=== PATIENT | male | born 1950 | race Caucasian/White ===

== ENCOUNTER 2017-02-01 13:42 | Inpatient (IN) | payer BC, OTHER ==
--- NOTE | 2017-02-01 14:13 | EDPHY ---
H & P Stated Complaint: Rt Shoulder, Rt Elbow, head lac, Mechanical Fall while hiking - Personal History Current Tetanus/Diphtheria Vaccine: Yes Current Tetanus Diphtheria and Acellular Pertussis (TDAP): Yes - Medical/Surgical History Hx Asthma: No Hx Chronic Respiratory Disease: No Hx Diabetes: No Hx Cardiac Disease: No Hx Renal Disease: No Hx Cirrhosis: No Hx Alcoholism: No Hx HIV/AIDS: No Hx Splenectomy or Spleen Trauma: No Other PMH: Parkinson's. Orthostatic Hypotension - Social History Smoking Status: Unknown if ever smoked Time Seen by Provider: 02/01/17 14:02 HPI/ROS: CHIEF COMPLAINT: mechanical fall HISTORY OF PRESENT ILLNESS: 66-year-old male history of Parkinson's disease, history of baseline unsteady gait in the ER via private vehicle with his . They are visiting from [place], states that they drove to [facility] on [facility] [facility] [facility], he started walking a down a trail and due to the uneven surface he sustained a mechanical fall. No loss of consciousness. No amnesia. He impacted his head. He sustained multiple other injuries to his right side including right shoulder abrasion and pain, right clavicle injury, right elbow pain, right-sided chest pain. Denies: Midline C-spine pain, peripheral paresthesia, weakness, numbness, dyspnea, back pain, abdominal pain, straddle injury. PRIMARY CARE PROVIDER:in [place] REVIEW OF SYSTEMS: A ten point review of systems was performed and is negative with the exception of the items mentioned in the HPI PAST MEDICAL/SURGICAL HISTORY: no anticoagulant use, Parkinson's disease. SOCIAL HISTORY: denies alcohol use at time of incident PHYSICAL EXAM 1) GENERAL: Well-developed, well-nourished, alert and oriented. Appears to be in no acute distress. Answering questions appropriately. 2) HEAD: Normocephalic, right frontal abrasion and laceration measuring 1.5 cm 3) HEENT: Pupils equal, round, reactive to light bilaterally. Negative Horners. Nasopharynx, oropharynx, clear. No deformity or angulation of nose. No septal hematoma. No rhinorrhea. No oral trauma. Ears bilaterally with normal tympanic membranes. No hemotympanum. No fluid or blood in the external auditory canal. No raccoon eyes. No Vallecillo sign. Teeth are normally aligned with no gross malocclusion, TMJ bilaterally nontender, facial bones nontender including the zygomatic arch, maxilla mandible. 4) NECK: No cervical collar is on. Posterior cervical spine is nontender, no stepoff, no effusion. Full range of motion which does not elicit any midline cervical spine pain, no posterior midline tenderness, no step-off. 5) LUNGS: Clear to auscultation bilaterally, no wheezes, no rhonchi, no retractions. No obvious signs of trauma. Right chest wall lateral to the nipple is tender to palpation. No crepitus. . No flaring, no grunting. Moving symmetrically. No crepitus. 6) HEART: Regular rate and rhythm, 7) ABDOMEN: No guarding, no rebound, no focal tenderness, no peritoneal signs, no signs of trauma, no ecchymosis 8) MUSCULOSKELETAL: Right upper extremity: Non tented deformity to the right clavicle. Intact skin. Right deltoid abrasion with tenderness to palpation right shoulder limited range of motion secondary to pain. Right elbow abrasion, puncture wound , tenderness to palpation. Distal pulses capillary refill are brisk. Otherwise , Moving all extremities, no focal areas of tenderness, no obvious trauma. Specific attention paid to the hips and pelvis and there is no pain, no visible or palpable abnormality. 9) BACK: No midline vertebral tenderness, no fluctuance, no step-off, no obvious trauma, no visual or palpable abnormality. 10) SKIN: No laceration. No abrasion DIFFERENTIAL DIAGNOSIS: [in no particular include but limited to intracranial hemorrhage, skull fracture, fracture, sprain, open fracture (Haylie,Diaz Chaya) Constitutional: Initial Vital Signs Temperature (C) 37.3 C 02/01/17 14:02 Heart Rate 74 02/01/17 14:02 Respiratory Rate 16 02/01/17 14:02 Blood Pressure 194/97 H 02/01/17 14:02 O2 Sat (%) 94 02/01/17 14:02 O2 Delivery Mode Room Air Allergies/Adverse Reactions: No Known Allergies Allergy (Unverified 02/01/17 14:07) Home Medications: Medication Instructions Recorded Bupropion HCl [Wellbutrin Xl] 300 mg PO DAILY@02/01/17 Diclofenac Sodium [Voltaren-XR] 100 mg PO DAILY@02/01/17 Donepezil HCl 10 mg PO DAILY@02/01/17 Finasteride [Finasteride] 5 mg PO DAILY@02/01/17 Fludrocortisone Acetate [Florinef 0.1 mg PO DAILY@02/01/17 0.1 MG (RX)] Hydrocodone/Acetaminophen [[place] 1 tab PO Q4H PRN 02/01/17 5/325 (*)] Midodrine HCl 10 mg PO BID@,02/01/17 PARoxetine HCL [Paroxetine HCl] 80 mg PO DAILY@02/01/17 clonazePAM [Klonopin (*)] 0.5 mg PO DAILY@02/01/17 Medical Decision Making - Diagnostics Imaging: Discussed imaging studies w/ office support associate Radiologist Procedures: Procedure: Laceration repair #1. The laceration on the right eyebrow was anesthetized using 0.5% bupivicaine with epinephrine . After anesthetic administered the patient was observed for a period of time and had no apparent adverse effects. The wound was cleaned, prepped, draped in normal sterile fashion and explored to its base. No foreign body seen, no foreign bodies palpated. There were no deep structures involved. The wound was repaired with tissue adhesive . The wound repair was simple Procedure: Laceration repair #2 I explained the indications, risks and benefits for both laceration repair and anesthetic administration. Verbal consent was obtained from the patient . The laceration on the right lateral elbow was anesthetized using 0.5% bupivicaine with epinephrine . After anesthetic administered the patient was observed for a period of time and had no apparent adverse effects. The wound was cleaned, prepped, draped in normal sterile fashion and explored to its base. No foreign body seen, no foreign bodies palpated. There were no deep structures involved. The wound was repaired with a total of 3 simple interrupted 4 0 Prolene sutures. The wound repair was simple. The procedure was performed by [myself. Patient has been informed that scarring will occur, although efforts have been made to minimize this. (Diaz Stallings) ED Course/Re-evaluation: I also saw this patient in the emergency department. I reviewed the history of [place] and fall. I reviewed the history with the family of his Parkinson's disease. Examination shows a closed but comminuted right clavicle fracture. I reviewed the chest x-ray showing rib fractures. The PA and I discussed further imaging with CT which then does show multiple rib fractures. I discussed these findings with the patient and his and recommended admission. They expressed understanding and agreement ( Remington Cain) This patient was re-evaluated with serial examinations. Regarding his right elbow laceration I think that traumatic arthrotomy is less than likely has these appear to be superficial lacerations. In addition there is no evidence of fracture fracture to the elbow. Doubt open fracture therefore. Patient was evaluated by myself and Dr. Remington Cain in the ER. He is noted to have a comminuted, displaced clavicle fracture with tented skin. He has a baseline of unsteady gait secondary to his Parkinson's disease. He has multiple rib fractures. I am concerned about this patient's ability to care for himself appropriately if you were to be discharged. I do not think that placing the patient to a sling and providing him with analgesia would be a safe option for him given his baseline medical history. We have recommended admission. 4:49 p.m.: Phone consultation with orthopedic VELVET Chung with Dr Guerin who will consult orthopedics regarding patient's clavicle fracture. 4:58 p.m.: Phone consultation with circulating nurse for Dr. Persaud who will admit patient to Trauma Services. Patient was not a trauma in activation. (Diaz Stallings) - Data Points Laboratory Results: Laboratory Results 02/01/17 15:19 02/01/17 15:19 Medications Given: Discontinued Medications Fentanyl (Sublimaze) 75 mcg IVP EDNOW ONE Stop: 02/01/17 15:41 Last Admin: 02/01/17 16:05 Dose: 75 mcg Hydromorphone HCl (Dilaudid) 0.5 mg IVP EDNOW ONE Stop: 02/01/17 17:12 Last Admin: 02/01/17 17:20 Dose: 0.5 mg Cefazolin Sodium/Dextrose (Ancef 2 Gm (Premix)) 100 mls @ 200 mls/hr IV ONCALL ONE PRN Reason: Protocol Stop: 02/02/17 07:29 Last Admin: 02/02/17 11:13 Dose: Not Given Lactated Ringer's (Lr) 1,000 mls @ 0 mls/hr IV ONCE ONE PRN Reason: As Directed Stop: 02/02/17 08:18 Last Admin: 02/02/17 11:58 Dose: Not Given Midazolam HCl (Versed) 1 - 2 mg IVP ONCALL ONE Stop: 02/02/17 07:53 Last Admin: 02/02/17 11:58 Dose: Not Given Departure - Departure Disposition: [facility] Inpatient Acute Clinical Impression: Mechanical fall, History of Parkinson's disease, Right forehead laceration Head injury Qualifiers: Encounter type: initial encounter Qualified Code(s): S09.90XA - Unspecified injury of head, initial encounter Right clavicle fracture Qualifiers: Encounter type: sequela Clavicle location: lateral end Fracture type: closed Fracture alignment: displaced Qualified Code(s): S42.031S - Displaced fracture of lateral end of right clavicle, sequela Laceration of right elbow Qualifiers: Encounter type: initial encounter Qualified Code(s): S51.011A - Laceration without foreign body of right elbow, initial encounter Condition: Fair
[2017-02-01] MEDS ORDERED: fentaNYL 100 MCG/2 ML INJ IVP ONE (15:40)
[2017-02-01] MEDS ORDERED: IOPAMIDOL (ISOVUE-300) 100 ML BTL ONE (15:45)
[2017-02-01] MEDS ORDERED: SKIN ADHESIVE (DERMABOND) 1 EACH TP ONE (15:48)
[2017-02-01 16:22] LABS: ABSOLUTE IMMATURE GRANULOCYTES 0.09 10^3/uL (0.00-0.10); ADD DIFF? NO; ADD MORPH? NO; ADD SCAN? NO; ATYPICAL LYMPHOCYTE FLAG 0 (0-99); FRAGMENT RBC FLAG 0 (0-99); HEMOGLOBIN 13.6 g/dL (13.7-17.5); LEFT SHIFT FLG 10 (0-99); LIPEMIA HEMOLYSIS FLAG 90 (0-99); MEAN CELL HEMOGLOBIN 32.1 pg (27.9-34.1); MEAN CELL VOLUME 94.3 fL (81.5-99.8); MEAN PLATELET VOLUME 9.8 fL (8.7-11.7); PLATELET CLUMPS FLAG 10 (0-99); PLATELET COUNT 257 10^3/uL (150-400); RED BLOOD CELL COUNT 4.24 10^6/uL (4.40-6.38); RED CELL DISTRIBUTION WIDTH 13.8 % (11.5-15.2)
[2017-02-01 16:59] LABS: ANION GAP 12 mEq/L (8-16); CALCIUM 9.1 mg/dL (8.5-10.4); CARBON DIOXIDE 21 mEq/l (22-31); CHLORIDE 109 mEq/L (97-110); CREATININE 0.8 mg/dL (0.7-1.3); GLOMERULAR FILTRATION RATE > 60; GLUCOSE 104 mg/dL (70-100); POTASSIUM 3.9 mEq/L (3.5-5.2); SODIUM 142 mEq/L (134-144)
[2017-02-01] MEDS ORDERED: HYDROmorphONE/DILAUDID 1 MG/ML SYR IVP ONE (17:11)
[2017-02-01] MEDS ORDERED: ONDANSETRON 4 MG/2 ML VIAL IVP PRN (17:21)
[2017-02-01] MEDS ORDERED: HYDROmorphONE/DILAUDID 1 MG/ML SYR IVP PRN (17:21)
--- NOTE | 2017-02-01 17:32 | PDGENHP ---
History and Physical - Chief Complaint R shoulder pain - History of Present Illness 66-year-old male status post mechanical fall presents here arriving via private vehicle with right shoulder pain. Patient states that he is visiting from [place], was up near [place] and was walking down a hill. Per his report, he lost balance fell and struck his right side, denies hitting his head or having loss of consciousness. His was on the scene, and promptly brought him here. In the Emergency [place], he was evaluated had some lacerations on his head which has been sutured. He also had imaging of his head C-spine chest abdomen and pelvis and and have the following injuries: Distal right clavicle fracture, right 5th and 6th nondisplaced rib fractures without heme or pneumothorax. The remainder of his imaging was negative for any acute traumatic findings. In the trauma [place] he complains of right shoulder pain, has no other complaints at this point in time. His airway is intact, he is breathing normally, and has adequate circulation. History Information - Allergies/Home Medication List Allergies/Adverse Reactions: No Known Allergies Allergy (Unverified 02/01/17 14:07) Home Medications: CLONAZEPAM 02/01/17 [Last Taken Unknown] Carbidopa/Levodopa 02/01/17 [Last Taken Unknown] Midodrine HCl 02/01/17 [Last Taken Unknown] Paroxetine HCl 02/01/17 [Last Taken Unknown] buPROPion 02/01/17 [Last Taken Unknown] I have personally reviewed and updated: family history, medical history, social history, surgical history - Past Medical History Additional medical history: Parkinson's - Surgical History Additional surgical history: Anterior lower spinal fusion, right knee surgery - Family History Positive for: non-pertinent - Social History Smoking Status: Unknown if ever smoked Alcohol Use: Rarely Drug Use: None Additional social history: Here on vacation from [place] with his Review of Systems ROS: 10pt was reviewed & negative except for what was stated in HPI & below Physical Exam Temp Pulse Resp BP Pulse Ox 36.9 C 80 14 138/84 H 96 02/01/17 16:00 02/01/17 16:00 02/01/17 16:00 02/01/17 16:00 02/01/17 16:09 Constitutional: no apparent distress, appears nourished Eyes: PERRL, anicteric sclera, EOMI, other (laceration adjacent to R eye closed. ) Ears, Nose, Mouth, Throat: moist mucous membranes, hearing normal Cardiovascular: regular rate and rhythym Respiratory: no respiratory distress, other (TTP on R side without crepitus or step off ) Skin: warm, normal color Musculoskeletal: full muscle strength, no muscle tenderness Neurologic: AAOx3, sensation intact bilaterally Psychiatric: interacting appropriately, not anxious Lymph, Heme, Immunologic: no cervical LAD Lab Data & Imaging Review 02/01/17 15:19 02/01/17 15:19 WBC 9.36 10^3/uL (3.80-9.50) 02/01/17 15:19 RBC 4.24 10^6/uL (4.40-6.38) L 02/01/17 15:19 Hgb 13.6 g/dL (13.7-17.5) L 02/01/17 15:19 POC Hgb 14.6 gm/dL (13.7-17.5) 02/01/17 15:15 Hct 40.0 % (40.0-51.0) 02/01/17 15:19 POC Hct 43 % (40-51) 02/01/17 15:15 MCV 94.3 fL (81.5-99.8) 02/01/17 15:19 MCH 32.1 pg (27.9-34.1) 02/01/17 15:19 MCHC 34.0 g/dL (32.4-36.7) 02/01/17 15:19 RDW 13.8 % (11.5-15.2) 02/01/17 15:19 Plt Count 257 10^3/uL (150-400) 02/01/17 15:19 MPV 9.8 fL (8.7-11.7) 02/01/17 15:19 Neut % (Auto) 83.8 % (39.3-74.2) H 02/01/17 15:19 Lymph % (Auto) 6.4 % (15.0-45.0) L 02/01/17 15:19 [place] % (Auto) 7.9 % (4.5-13.0) 02/01/17 15:19 Eos % (Auto) 0.5 % (0.6-7.6) L 02/01/17 15:19 Baso % (Auto) 0.4 % (0.3-1.7) 02/01/17 15:19 Nucleat RBC Rel Count 0.0 % (0.0-0.2) 02/01/17 15:19 Absolute Neuts (auto) 7.84 10^3/uL (1.70-6.50) H 02/01/17 15:19 Absolute Lymphs (auto) 0.60 10^3/uL (1.00-3.00) L 02/01/17 15:19 Absolute Monos (auto) 0.74 10^3/uL (0.30-0.80) 02/01/17 15:19 Absolute Eos (auto) 0.05 10^3/uL (0.03-0.40) 02/01/17 15:19 Absolute Basos (auto) 0.04 10^3/uL (0.02-0.10) 02/01/17 15:19 Absolute Nucleated RBC 0.00 10^3/uL (0-0.01) 02/01/17 15:19 Immature Gran % 1.0 % (0.0-1.1) 02/01/17 15:19 Immature Gran # 0.09 10^3/uL (0.00-0.10) 02/01/17 15:19 POC Sodium 143 mEq/L (134-144) 02/01/17 15:15 Sodium 142 mEq/L (134-144) 02/01/17 15:19 POC Potassium 3.6 mEq/L (3.3-5.0) 02/01/17 15:15 Potassium 3.9 mEq/L (3.5-5.2) 02/01/17 15:19 POC Chloride 103 mEq/L (97-110) 02/01/17 15:15 Chloride 109 mEq/L (97-110) 02/01/17 15:19 Carbon Dioxide 21 mEq/l (22-31) L 02/01/17 15:19 Anion Gap 12 mEq/L (8-16) 02/01/17 15:19 POC BUN 20 mg/dL (7-23) 02/01/17 15:15 BUN 22 mg/dL (7-23) 02/01/17 15:19 Creatinine 0.8 mg/dL (0.7-1.3) 02/01/17 15:19 POC Creatinine 0.9 mg/dL (0.7-1.3) 02/01/17 15:15 Estimated GFR > 60 02/01/17 15:19 Glucose 104 mg/dL (70-100) H 02/01/17 15:19 POC Glucose 108 mg/dL (70-100) H 02/01/17 15:15 Calcium 9.1 mg/dL (8.5-10.4) 02/01/17 15:19 Visualized and Interpreted Chest x-ray results: Yes Chest X-Ray results: other (no hemo or ptx, small nondisplaced right rib fx) Visualized and Interpreted imaging results: Yes Interpretation: Imaging of the CT head, C-spine, chest abdomen pelvis. All images were personally reviewed by me. Findings include: Distal right clavicle fracture, right 5th and 6th rib fracture, no other acute findings Assessment & Plan Assessment: Head injury (Acute) History of Parkinson's disease (Acute) Laceration of right elbow (Acute) Right clavicle fracture (Acute) Plan: Patient will be admitted to the trauma service for pain management. Orthopedics has been consulted to evaluate his distal right clavicle fracture. At this point in time I discussed with him the need for aggressive pulmonary toilet and incentive spirometry. I told him the need for adequate pain control so that he can cough and deep breathe as his underlying rib fractures can cause further problems with pneumonia. We will plan to restart all of his Parkinson' s medications, and asked medicine to help if we have issues with those. Anticipate the patient will be year 1-2 nights receiving adequate analgesia before he is stable and ready to be discharged.
[2017-02-01] MEDS: HYDROCODONE/APAP 5/325 TAB PO PRN ×2 (17:43→18:10)
[2017-02-01] MEDS: D5W 1/2 NS 1,000 ML IV SCH (18:10)
--- NOTE | 2017-02-01 19:22 | GCON ---
[f rep st] CONSULTATION DATE OF CONSULTATION: 02/01/2017 CHIEF COMPLAINT: Right shoulder pain. HISTORY OF PRESENT ILLNESS: The patient is a 66-year-old right-handed male who presents to the emergency department via private vehicle complaining of right shoulder pain. Per patient report, he was walking trails near [place] when he was walking downhill, lost his balance and landed on the right side. He is unsure exactly how he landed but does not recall hitting his head or losing any consciousness. Patient states his pain is in the right clavicle area and describes it as both sharp and achy and rated a 7/10. X-rays were completed in the emergency department which confirmed a right clavicle fracture as well as rib fractures. Patient is visiting from [place] with his to visit his son. He denies any numbness or tingling. PAST MEDICAL HISTORY: Patient has a history of Parkinson's and reports he does fall a lot. PAST SURGICAL HISTORY: Spinal fusion and partial knee arthroplasties bilaterally. CURRENT MEDICATIONS: Florinef, clonazepam, donepezil, paroxetine, diclofenac, midodrine, finasteride and bupropion. ALLERGIES: No known drug allergies. SOCIAL HISTORY: Patient lives independently with his in [place]. Former tobacco user. Drinks 1-2 glasses of wine per day. Denies recreational drug use. FAMILY HISTORY: Father: CAD and AL REVIEW OF SYSTEMS: No other complaints after a 10-point review. PHYSICAL EXAMINATION: GENERAL: The patient is a healthy, well-appearing male. He is alert, active, and in mild distress. HEENT: Head is normocephalic, atraumatic. There is an abrasion that has been closed with Dermabond over the right eyebrow. Nose, ears and mouth appear normal. Eye motion is intact. NECK : Normal appearance with midline trachea. Full range of motion. Negative Lhermitte's, negative Spurling's. LUNGS: Chest motion appears normal. Respirations are nonlabored. MUSCULOSKELETAL: Small abrasion over the posterior right shoulder. Otherwise, skin is intact. Area of ecchymosis and hematoma of the distal clavicle. Tenderness to palpation diffusely along the right clavicle. Patient has good senior materials planner strength, full range of motion of his right wrist and hand. Radial pulse 2+ with brisk capillary refill and sensation is intact. Full range of motion. 5/5 strength and sensation is intact in the bilateral lower extremities. Calves are soft, nontender. Negative Homans. Distal pulses 2+. SKIN: Please see dictation above. There is also a small abrasion over the right patella. Otherwise, no other abrasions , erythema, or tattoos. NEUROLOGIC: Appears alert and oriented to person, place, and time. Speech is fluid and fluent. PSYCHIATRIC: Affect is normal. RADIOGRAPHIC DATA: X-rays of the right clavicle are reviewed which do show a comminuted, displaced distal clavicle fracture with a segment attached to the coracoid. ASSESSMENT AND PLAN: Comminuted and displaced right clavicle fracture, status post fall. Patient will be nonweightbearing of the right upper extremity and sling in place for comfort. Ice can be used in the area for comfort as well. Continue pain management. Discussed with patient and his that this clavicle will need to be fixed surgically and it is their decision if they would like this to be done here at [facility] or if they would like to wait to do it when they are back home in [place]. The patient and his would like to have the surgery done while at [facility] and this has been scheduled for 8am on 02/02/17. Patient will be NPO after midnight. The main goal until surgery will be pain control and ensuring he is getting good deep breaths to minimize any secondary problems to the lungs. Continue to monitor neurovascular status. Patient understands and agrees with the treatment plan today and all of his questions have been answered. Patient was seen and evaluated with Dr. Guerin and he concurs with the plan as described. Dr. Guerin completed a consent for surgery with the patient and his at bedside discussing all risk, benefits, and alternatives. Copy requested to: Dr. Guerin /[id number]/MODL MTDD
--- NOTE | 2017-02-01 20:53 | SOAPPROG ---
SOAP Progress Note Assessment/Plan: Assessment: Closed, displaced R segmental clavicle fx with associated rib fxs s /p fall hiking. P[place] is currently on the trauma svce, who are addressing chest injuries and primary care. Plan: Rec ORIF R clavicle, and I've offered this to be done at home or during this hospital stay. They have elected for surgery here, and provided signed and witnessed informed consent after understanding R/B/A to surgery, provided by /MPOA. All questions answered. NPO p MN, enox d/c'd for OR 8am. NWB RUE in sling. Position of comfort and analgesia. TEDs/SCDs BLEs, ICS and aggressive pulm toilet per GSurg. Please call with any questions. 02/01/17 20:49 02/01/17 20:53 Subjective: R shoulder injury earlier today. Denies significant pain, no numb/tingling BUEs. Objective: Vital Signs Temp Pulse Resp BP Pulse Ox 36.6 C 72 16 124/67 H 96 02/01/17 19:50 02/01/17 19:50 02/01/17 19:50 02/01/17 19:50 02/01/17 19:50 01/31/17 02/01/17 02/02/17 05:59 05:59 05:59 Intake Total 240 Balance 240 R shoulder superficial abrasion along posterior acromion, +ecchymosis and minor skin deformation at fx site, skin intact w/o tenting. No TTP at SCJ/ACJ. Comp' s soft. DNVI RUE including Ax M/S fxn. XR - Segmental R clavicle fx with CC lig's intact and tethering middle segment, and significant >100% displacement of adjacent med/lat segments. ICD10 Worksheet Patient Problems: Problems Problem Status Onset Head injury Acute History of Parkinson's disease Acute Laceration of right elbow Acute Right clavicle fracture Acute
[2017-02-01] MEDS: BACITRACIN ZINC 14.2 GM OINTTUBE TP SCH (21:31)
[2017-02-01] MEDS: IBUPROFEN 600 MG TAB PO SCH (21:34)
[2017-02-01] MEDS: DIAZEPAM 5 MG TAB PO PRN (21:38)
[2017-02-01 21:43] LABS: INR 1.1 (0.83-1.16); PROTIME(PATIENT) 14.1 SEC (12.0-15.0)
[2017-02-01 21:44] LABS: APTT 25.4 SEC (23.0-38.0)
[2017-02-02] MEDS: HYDROCODONE/APAP 5/325 TAB PO PRN ×2 (03:48→23:00)
[2017-02-02] MEDS: D5W 1/2 NS 1,000 ML IV SCH (03:48)
[2017-02-02] MEDS: IBUPROFEN 600 MG TAB PO SCH ×3 (05:34→21:28)
[2017-02-02] MEDS ORDERED: ceFAZolin 2 GM/DEXTROSE 100 ML IV ONE (07:00)
[2017-02-02] MEDS ORDERED: MIDODRINE HCL 5 MG TAB PO SCH (07:00)
[2017-02-02] MEDS ORDERED: BACITRACIN 50,000 UNITS/10 ML SYR IRR ONE (07:28)
[2017-02-02] MEDS ORDERED: BUPIVACAINE/EPI 0.5% 30 ML SDV ONE (07:28)
[2017-02-02] MEDS ORDERED: POLYMYXIN B SULFATE 500,000 UNIT/10 ML SYR IRR ONE (07:29)
[2017-02-02] MEDS ORDERED: MIDAZOLAM 2 MG/2 ML VIAL IVP ONE (07:52)
[2017-02-02] MEDS ORDERED: MIDAZOLAM 2 MG/2 ML VIAL ONE (07:53)
--- NOTE | 2017-02-02 07:56 | PDANEPAE ---
ANE History of Present Illness comminuted R distal clavicle fx s/p fall while hiking cleared by TS and head CT ANE Past Medical History - Pulmonary History Hx Oxygen in Use at Home: No Hx Sleep Apnea: No Sleep Apnea Screening Result - Last Documented: Negative Pulmonary History Comment: 2 rib Fx right side, stable, pain with breathing - Endocrine History Hx Diabetes: No - Neurological & Psychiatric Hx Hx Neurological and Psychiatric Disorders: Yes Neurological / Psychiatric History Comment: Parkinsons DZ. Falls frequently - Chronic Pain History Chronic Pain: No ANE Review of Systems - Exercise capacity Exercise capacity: <4 METS - Systems Cardiac: Reports: other (hx low BP) ANE Patient History - Allergies Allergies/Adverse Reactions: No Known Allergies Allergy (Unverified 02/01/17 14:07) - Home Medications Home Medications: Bupropion HCl [Wellbutrin Xl] 300 mg PO DAILY@02/01/17 [Last Taken 02/01/17] Diclofenac Sodium [Voltaren-XR] 100 mg PO DAILY@02/01/17 [Last Taken 01/31/17 ] Donepezil HCl 10 mg PO DAILY@02/01/17 [Last Taken 01/31/17] Finasteride [Finasteride] 5 mg PO DAILY@02/01/17 [Last Taken 01/30/17] Fludrocortisone Acetate [Florinef 0.1 MG (RX)] 0.1 mg PO DAILY@02/01/17 [ Last Taken 01/31/17] Hydrocodone/Acetaminophen [[place] 5/325 (*)] 1 tab PO Q4H PRN 02/01/17 [Last Taken Unknown] Midodrine HCl 10 mg PO BID@,02/01/17 [Last Taken 02/01/17 11:00] PARoxetine HCL [Paroxetine HCl] 80 mg PO DAILY@02/01/17 [Last Taken 01/31/17] clonazePAM [Klonopin (*)] 0.5 mg PO DAILY@02/01/17 [Last Taken 01/31/17] - NPO status NPO Since - Liquids (Date): 02/02/17 NPO Since - Liquids (Time): 00:00 NPO Since - Solids (Date): 02/02/17 NPO Since - Solids (Time): 00:00 - Anes Hx Anes Hx: no prior problems - Smoking Hx Smoking Status: Former smoker - Alcohol Use Alcohol Use: Rarely ANE Labs/Vital Signs - Labs Result Diagrams: 02/01/17 15:19 02/01/17 15:19 - Vital Signs Blood Pressure: 134/77 Heart Rate: 63 Respiratory Rate: 16 O2 Sat (%): 95 Height: 185.42 cm Weight: 95.25 kg ANE Physical Exam - Airway Neck exam: decreased ROM Mallampati Score: Class 2 Mouth exam: normal dental/mouth exam - Pulmonary Pulmonary: other (pain from rib FX) - Cardiovascular Cardiovascular: regular rate and rhythym - ASA Status ASA Status: II ANE Anesthesia Plan Anesthesia Plan: general endotracheal anesthesia, GA w LMA (LMA vs ETT depending on seating of LMA)
[2017-02-02] MEDS ORDERED: PROPOFOL/EMULSION 500 MG/50 ML BOTTLE IV ONE (08:11)
[2017-02-02] MEDS ORDERED: DEXAMETHASONE 4 MG/ML VIAL ONE ×2 (08:11)
[2017-02-02] MEDS ORDERED: LIDOCAINE 2% JELLY 5 ML TUBE ONE (08:11)
[2017-02-02] MEDS ORDERED: fentaNYL 100 MCG/2 ML INJ ONE (08:11)
[2017-02-02] MEDS ORDERED: ONDANSETRON 4 MG/2 ML VIAL ONE ×2 (08:11)
[2017-02-02] MEDS ORDERED: LIDOCAINE 2% 5 ML SDV ONE (08:12)
[2017-02-02] MEDS ORDERED: LR 1,000 ML IV ONE (08:17)
[2017-02-02] MEDS ORDERED: epHEDrine SULFATE 10 MG/ML SYR ONE ×2 (08:30)
[2017-02-02] MEDS ORDERED: GLYCOPYRROLATE 0.2 MG/1 ML VIAL ONE (08:37)
[2017-02-02] MEDS ORDERED: ENOXAPARIN 40 MG/0.4 ML SYR SC SCH (09:00)
[2017-02-02] MEDS ORDERED: PHENYLEPHRINE HCL 100 MCG/ML SYR ONE (09:10)
[2017-02-02] MEDS ORDERED: PROPOFOL 200 MG/20 ML VIAL ONE (09:41)
[2017-02-02] MEDS ORDERED: METOCLOPRAMIDE 10 MG/2 ML VIAL IVP PRN (09:47)
[2017-02-02] MEDS ORDERED: OXYCODONE/APAP 5/325 TAB PO PRN (09:47)
[2017-02-02] MEDS ORDERED: NALOXONE HCL 0.4 MG/ML INJ IVP PRN (09:47)
[2017-02-02] MEDS ORDERED: PROMETHAZINE HCL 25 MG/ML INJ IVP PRN (09:47)
[2017-02-02] MEDS ORDERED: HYDROCODONE/APAP 5/325 TAB PO PRN (09:47)
[2017-02-02] MEDS ORDERED: DEXAMETHASONE 4 MG/ML VIAL IVP PRN (09:47)
[2017-02-02] MEDS ORDERED: MEPERIDINE 25 MG/ML SYR IVP PRN (09:47)
[2017-02-02] MEDS ORDERED: LABETALOL HCL 50 MG/10 ML SYR IVP PRN (09:47)
[2017-02-02] MEDS ORDERED: ONDANSETRON 4 MG/2 ML VIAL IVP PRN (09:47)
[2017-02-02] MEDS ORDERED: LR 500 ML IV PRN (09:47)
[2017-02-02] MEDS ORDERED: ACETAMINOPHEN 500 MG TAB PO PRN (09:47)
[2017-02-02] MEDS ORDERED: fentaNYL 100 MCG/2 ML INJ IVP PRN ×2 (09:47)
--- NOTE | 2017-02-02 10:34 | POSTOPPROG ---
Post Op Note Date of Operation: 02/02/17 Surgeon: Nelson Guerin Speech And Language Specialist: Juliet Poon PA-C Anesthesia: GET(General Endotracheal) Pre-op Diagnosis: Right clavicle fracture Post-op Diagnosis: Right clavicle fracture Procedure: ORIF R clavicle fracture Findings: See full dictation Inf/Abcess present in the surg proc area at time of surgery?: No Depth: Organ Space EBL: 50-100
--- NOTE | 2017-02-02 10:37 | SOAPPROG ---
SOAP Progress Note Assessment/Plan: Assessment/Plan: s/o ORIF R clavicle fracture s/p fall POD#0 - Continue a full 24 hours of antibiotic prophylaxis - NWB RUE - Ice for comfort - Continue pain management - Recommend Lovenox 40mg SC daily or Xarelto 10mg daily x 14days for VTE chemoprophylaxis, will let admitting team decide 02/02/17 10:34 Subjective: Pt is feeling okay this morning and ready for surgery. Pt denies fever, chills, numbness, tingling, and calf pain. Objective: Vital Signs Temp Pulse Resp BP Pulse Ox 36.6 C 63 16 134/77 H 95 02/02/17 07:30 02/02/17 07:57 02/02/17 07:57 02/02/17 07:57 02/02/17 07:57 02/01/17 02/02/17 02/03/17 05:59 05:59 05:59 Intake Total 1240 Output Total 1100 Balance 140 PT 14.1 SEC (12.0-15.0) 02/01/17 21:25 INR 1.10 (0.83-1.16) 02/01/17 21:25 Physical Exam - Physical Exam General Appearance: alert, mild distress Cardiac/Chest: normal peripheral pulses Skin: warm/dry, other (ecchymosis and skin tenting over the right clavicle) Extremities: normal capillary refill, No pedal edema, No calf tenderness, No Dario's sign Neuro/Psych: no motor/sensory deficits, alert, normal mood/affect ICD10 Worksheet Patient Problems: Problems Problem Status Onset Head injury Acute History of Parkinson's disease Acute Laceration of right elbow Acute Right clavicle fracture Acute
--- NOTE | 2017-02-02 11:05 | POSTANESTH ---
Post Anesthetic Evaluation Respiratory Status: Normal, Stable Level of Consciousness/Mental Status: Can Participate in Eval, Mildly Sleepy, Arousable Pain Control: Adequate, Prn Tx Ordered Nausea/Vomiting Control: Adequate, Prn Tx Ordered (no apparent anesthesia complications)
--- NOTE | 2017-02-02 11:23 | GOP ---
[f rep st] OPERATIVE REPORT DATE OF OPERATION: 02/02/2017 SURGEON: Nelson Guerin MD DISPENSING LEAD: Juliet Poon PA-C. ANESTHESIA: General. ANESTHESIOLOGIST: Dr. Morgan. PREOPERATIVE DIAGNOSIS: Closed, segmental right clavicle fracture with skin tenting. POSTOPERATIVE DIAGNOSIS: Closed, segmental right clavicle fracture with skin tenting. PROCEDURE PERFORMED: Open reduction, internal fixation of right clavicle fracture. FINDINGS: Closed, segmental, right clavicle fracture with skin tenting. The skin was intact, though there was clearly tenting and rapidly developing ecchymosis and erythema in the area of the distal tip of the medial portion of the fracture. Otherwise, bone quality was appropriate. There was significant comminution between the central segment and lateral segment. AC joint was intact. CC ligaments were intact. There was significant fracture hematoma and periosteal stripping around the large area of fracture and zone of injury. SPECIMENS: None. ESTIMATED BLOOD LOSS: 20 cc. INDICATIONS: This is a 66-year-old male with Parkinson disease, who suffered a fall yesterday while hiking. The patient was admitted to the trauma service due to his Parkinson disease and associated rib fractures. I was consulted as the orthopedic surgeon. Due to the segmental nature of this fracture, ORIF was recommended. The patient was offered the opportunity to proceed with nonoperative care, return to his home near [place] and have a surgery there , or have a surgery at [facility]. He elected for the latter, i.e. surgery today. Overnight, his skin became more tented over the distal aspect of the medial fragment. This fragment was rather sharp laterally and there was clear skin tenting in the preop holding area. Due to the above, surgery was recommended. The risks, benefits, and alternatives were described to the patient. All of his questions were answered prior to surgery. His , the patient's medical power of defense attorney, provided signed and witnessed informed consent. Please see history and physical as well as consent form for additional information. DESCRIPTION OF PROCEDURE: The patient was identified in the preop holding area and his right shoulder was signed and designated as the operative site. The patient was confirmed in bilateral lower extremity ARI hose and SCDs. He was treated with 2 g IV prophylactic cefazolin per protocol. He was taken back to the operating room, placed supine on the OR table, and general anesthesia was obtained. The patient was then positioned in beach-chair position with great care taken to place abundant pillows behind both knees and around the proximal fibula bilaterally. Both heels and ankles were floated with foam and crate padding. The left upper extremity was placed across his lap, again on additional abundant foam eggcrate padding, particularly around the ulnar nerve at the elbow. Head and neck were positioned in very slight left lateral gaze in order to facilitate access to the right clavicle. Abundant padding was placed throughout the head and neck with a standard head positioning device. Right upper extremity was prepped and draped in the usual sterile manner. Please note, the patient did have a laceration on his elbow which was covered with standard draping equipment, i.e., an impervious extremity sleeve. There was a very superficial abrasion on the posterior scapula and acromion that was kept outside of the incision. There were additional minor abrasions throughout the right upper extremity (road rash) that were draped out as much as was possible. The incision line was anesthetized with 15 cc of 0.25 Marcaine with epinephrine. A full-thickness dermal incision was made with a 10 blade. Careful dissection was taken down through the subcutaneous fat. All small crossing venules and conduits were coagulated with a Bovie cautery device. Abundant hematoma was identified with significant periosteal stripping in the area of the central segment. This was suction irrigated. Careful dissection was taken down to the anterosuperior cortex of all 3 segments of the fracture. Subperiosteal dissection was kept to a minimum and only along the superior surface of the clavicle. Once appropriate exposure was achieved and all interposed soft tissues and hematoma removed from the fracture sites, initially the central segment was fixated to the medial segment. Using a series of [id number] reduction tenacula, anatomic reduction was achieved at the fracture site between the central segment and medial segment. A single 2.3 mm lag screw was placed using standard AO technique. Next, the lateral segment was then reduced to the central segment and there was abundant comminution in this area. All small bony pieces were kept for bone graft. All drill filings were also kept for bone graft in order to pack into this area with high comminution. A distal clavicle plate from the [employer] system was selected and found to be of the appropriate length. This was initially fixated distally with 4 total screws, 1 nonlocking and 3 locking screws. This achieved very good fixation in multiple planes with the 2.3 mm screws within this very small segment. Next, the plate was provisionally fixated to the medial segment with a clamp and a K-wire. The K-wire was removed, and then using the plate compression was achieved across the comminuted segment, i.e., between the lateral and central segments. Previously excellent compression was achieved with an interfragmentary compression screw at the junction of the central and medial segments. The plate was then formally fixated down to bone with a series of 3 screws placed medial to the most medial aspect of the fracture. Two additional screws were placed within the central segment. Excellent fixation was achieved throughout. A combination of locking and nonlocking screws were utilized for both the 2.3 mm screws laterally and the 3.5 mm screws more centrally and medially. Once appropriate fixation was achieved, an anatomic reduction was confirmed throughout, finalized C-arm images were taken with the large C-arm. Confirmation of reduction and hardware placement was performed. Drill filings were then packed into the fracture zones after copious irrigation with bacitracin and saline. Very nice bone grafting slurry was achieved at the level of the comminution, particularly laterally. Closure was then begun. 0 Vicryl was used to reapproximate the deltotrapezial fascial split. 2-0 Vicryl was used to further reapproximate the deep tissues and deep dermal layer to decrease space. 3-0 Monocryl was used in a deep dermal manner. 3-0 nylon was then used in a running horizontal mattress trauma stitch in order to formally close the skin. Excellent hemostasis was confirmed throughout. Sterile postoperative surgical dressings were applied. The right upper extremity was placed in a sling and immobilizer. The anesthesia service then took over to wake the patient up after he was returned to the supine position. TOURNIQUET TIME: None. DRAINS: None. IMPLANTS: [employer] distal clavicle locking plate with a combination of locking and nonlocking 2.3 and 3.5 mm screws. COMPLICATIONS: None. DISPOSITION: The patient was extubated and transferred to the PACU in stable condition. PLAN: NWFelicia RUE w/ sling/immobilizer. Cefazolin 2g IV proph abx x 23 hrs post- op. VTE mechanical prophylaxis BLEs, and chemoprophylaxis per primary GSurg team, though recommend something like Xarelto 10mg PO daily x 14 days. /[id number]/MODL MTDD
[2017-02-02] MEDS: ceFAZolin 2 GM/DEXTROSE 100 ML IV SCH ×2 (13:22→21:27)
[2017-02-02] MEDS: BACITRACIN ZINC 14.2 GM OINTTUBE TP SCH ×2 (13:22→21:27)
[2017-02-02] MEDS: FINASTERIDE 5 MG TAB PO SCH (13:23)
[2017-02-02] MEDS: buPROPion XL 150 MG TAB PO SCH (13:23)
[2017-02-02] MEDS: DICLOFENAC SODIUM 100 MG PO SCH (17:06)
[2017-02-02] MEDS: FLUDROCORTISONE ACETATE 0.1 MG TAB PO SCH ×2 (17:07→17:10)
--- NOTE | 2017-02-02 18:11 | TRAUMAPN ---
Assessment/Plan: 66 yo man with baseline parkinson's fell on hike sustained 2/3 posterior right rib fx and segmental closed right clavicle fx S/P ORIF today with Dr Guerin C/o rib and clavicle pain Sinemet restarted On dysphagia diet Hemodynamically stable RRR CTA left diminished right Abd soft NT ND Parkinson's tremor distally NVI Pain control post fall with rib and clavicle fx on right s/p orif lovenox started PT/OT Objective: Vital Signs Temp Pulse Resp BP Pulse Ox 37.1 C 75 14 142/82 H 90 L 02/02/17 17:19 02/02/17 17:19 02/02/17 17:19 02/02/17 17:19 02/02/17 17:19 02/01/17 02/02/17 02/03/17 05:59 05:59 05:59 Intake Total 1240 2250 Output Total 1100 575 Balance 140 1675 PT 14.1 SEC (12.0-15.0) 02/01/17 21:25 INR 1.10 (0.83-1.16) 02/01/17 21:25
[2017-02-02] MEDS: clonazePAM 0.5 MG TAB PO SCH (21:28)
[2017-02-02] MEDS: DONEPEZIL HCL 5 MG TAB PO SCH (21:28)
[2017-02-02] MEDS: PARoxetine HCL 20 MG TAB PO SCH (21:29)
[2017-02-03] MEDS: DIAZEPAM 5 MG TAB PO PRN (03:19)
[2017-02-03] MEDS: ceFAZolin 2 GM/DEXTROSE 100 ML IV SCH (05:30)
[2017-02-03] MEDS: HYDROCODONE/APAP 5/325 TAB PO PRN ×2 (05:31→13:19)
[2017-02-03] MEDS: CARBIDOPA/LEVODOPA 25 MG/250 MG TAB PO SCH ×4 (06:12→16:08)
[2017-02-03] MEDS: buPROPion XL 150 MG TAB PO SCH (06:12)
[2017-02-03] MEDS: IBUPROFEN 600 MG TAB PO SCH ×4 (06:13→21:51)
[2017-02-03] MEDS: ENOXAPARIN 40 MG/0.4 ML SYR SC SCH (08:54)
[2017-02-03] MEDS: BACITRACIN ZINC 14.2 GM OINTTUBE TP SCH ×2 (08:55→21:30)
--- NOTE | 2017-02-03 10:10 | TRAUMAPN ---
Assessment/Plan: 66 yo s/p fall with displaced r clavicle fx s/p repair by Dr. Guerin and 5/6 rib fractures Pain control Cough deep breath Home medications for parkinsons From [place], travel will be very difficult S: Concerned he is growing into the chair. Not understanding that he cant use RUE S: Objective: Vital Signs Temp Pulse Resp BP Pulse Ox 37.2 C 65 12 170/91 H 91 L 02/03/17 07:23 02/03/17 07:23 02/03/17 07:23 02/03/17 07:23 02/03/17 07:23 02/02/17 02/03/17 02/04/17 05:59 05:59 05:59 Intake Total 1240 3750 Output Total 1100 925 Balance 140 2825 PT 14.1 SEC (12.0-15.0) 02/01/17 21:25 INR 1.10 (0.83-1.16) 02/01/17 21:25 Physical Exam - Physical Exam General Appearance: WD/WN, mild distress EENT: other (pin point pupils) Respiratory: lungs clear, normal breath sounds Cardiac/Chest: regular rate, rhythm Abdomen: non-tender, soft Extremities: other (right arm replaced in sling. Clav dressing dry and intact) Neuro/Psych: motor weakness, cognition abnormalities
--- NOTE | 2017-02-03 11:15 | SOAPPROG ---
SOAP Progress Note Assessment/Plan: Assessment/Plan: s/o ORIF R clavicle fracture s/p fall POD#1 - Continue a full 24 hours of antibiotic prophylaxis - NWB RUE - Ice for comfort - Continue pain management - Lovenox for VTE chemoprophylaxis - SCDs/TEDs for mechanical prophylaxis - Continue PT/OT 02/02/17 10:34 02/03/17 11:13 Subjective: Pt states he is doing okay, has been OOB. reports he seems a little confused, and keeps wanting to use the R arm. Pt denies fever, chills, chest pain, SOB, abdominal pain, N/V/D, numbness, tingling and calf pain. Objective: Vital Signs Temp Pulse Resp BP Pulse Ox 37.2 C 65 12 170/91 H 91 L 02/03/17 07:23 02/03/17 07:23 02/03/17 07:23 02/03/17 07:23 02/03/17 07:23 02/02/17 02/03/17 02/04/17 05:59 05:59 05:59 Intake Total 1240 3750 Output Total 1100 925 Balance 140 2825 PT 14.1 SEC (12.0-15.0) 02/01/17 21:25 INR 1.10 (0.83-1.16) 02/01/17 21:25 Physical Exam - Physical Exam General Appearance: alert, no apparent distress Cardiac/Chest: normal peripheral pulses Skin: normal color, warm/dry Extremities: normal capillary refill, other (Sling and post-operative dressing intact RUE), No pedal edema, No calf tenderness, No swelling, No Dario's sign Neuro/Psych: no motor/sensory deficits, alert, normal mood/affect ICD10 Worksheet Patient Problems: Problems Problem Status Onset Head injury Acute History of Parkinson's disease Acute Laceration of right elbow Acute Right clavicle fracture Acute
[2017-02-03] MEDS: FINASTERIDE 5 MG TAB PO SCH (13:23)
[2017-02-03] MEDS: FLUDROCORTISONE ACETATE 0.1 MG TAB PO SCH (16:18)
[2017-02-03] MEDS: DICLOFENAC SODIUM 100 MG PO SCH (16:18)
[2017-02-03] MEDS ORDERED: oxyCODONE IR 5 MG TAB PO PRN (18:06)
[2017-02-03] MEDS ORDERED: HYDROmorphONE/DILAUDID 1 MG/ML SYR IVP PRN (18:07)
[2017-02-03] MEDS: DONEPEZIL HCL 5 MG TAB PO SCH (20:24)
[2017-02-03] MEDS: clonazePAM 0.5 MG TAB PO SCH (20:24)
[2017-02-03] MEDS: PARoxetine HCL 20 MG TAB PO SCH (20:24)
[2017-02-04] MEDS: DIAZEPAM 5 MG TAB PO PRN ×2 (01:52→22:23)
[2017-02-04] MEDS: ACETAMINOPHEN 500 MG TAB PO SCH ×4 (01:52→22:22)
[2017-02-04] MEDS ORDERED: hydrALAZINE 20 MG/ML VIAL IVP ONE ×2 (04:28→08:49)
[2017-02-04] MEDS ORDERED: HYDROmorphONE/DILAUDID 1 MG/ML SYR IVP ONE (04:29)
[2017-02-04] MEDS: buPROPion XL 150 MG TAB PO SCH (05:58)
[2017-02-04] MEDS: CARBIDOPA/LEVODOPA 25 MG/250 MG TAB PO SCH ×4 (05:59→15:53)
[2017-02-04] MEDS: IBUPROFEN 600 MG TAB PO SCH (05:59)
--- NOTE | 2017-02-04 09:07 | SOAPPROG ---
SOAP Progress Note Assessment/Plan: Assessment: POD #2 ORIF right clavicle fracture Plan: Dressing changed today and new dry dressing placed Non weight bearing right upper extremity Ice RUE Pain medicine prn Lovenox VTE chemoprophylaxis SCD's/ARI's mechanical prophylaxis PT/OT Ortho to follow 02/04/17 09:03 Subjective: Patient is POD#2 Right ORIF clavicle fracture doing well, pain is controlled. No fever or chills. Patient is stable. Objective: Vital Signs Temp Pulse Resp BP Pulse Ox 36.8 C 66 13 181/107 H 96 02/04/17 07:49 02/04/17 07:49 02/04/17 07:49 02/04/17 07:49 02/04/17 07:49 02/03/17 02/04/17 02/05/17 05:59 05:59 05:59 Intake Total 3750 Output Total 925 150 Balance 2825 -150 PT 14.1 SEC (12.0-15.0) 02/01/17 21:25 INR 1.10 (0.83-1.16) 02/01/17 21:25 Physical exam of the right clavicle: dressing changed and new dry dressing applied. Incision is healing well, no erythema, no active drainage. Patient able to move all 5 fingers, wrist and elbow. Distal pulse present in the RUE. - Time Spent With Patient Time Spent With Patient: 10 minutes ICD10 Worksheet Patient Problems: Problems Problem Status Onset Head injury Acute History of Parkinson's disease Acute Laceration of right elbow Acute Right clavicle fracture Acute
--- NOTE | 2017-02-04 09:12 | TRAUMAPN ---
Assessment/Plan: 02/04/2017 PAD#3 POD#2 Assessment: HTN at base line is probably augmented by fluid administration and pain. Pain control still a problem. Has not moved his bowels yet Plan: Address pain and stop IV fluids. Will use hydralazine temporally. will add bowel protocol Subjective: c/o left shoulder pain, notes that he has had HTN for 17 years but because of orthostatic hypotension he does not treat it. No stool since admission. Objective: Vital Signs Temp Pulse Resp BP Pulse Ox 36.8 C 66 13 181/107 H 96 02/04/17 07:49 02/04/17 07:49 02/04/17 07:49 02/04/17 07:49 02/04/17 07:49 02/03/17 02/04/17 02/05/17 05:59 05:59 05:59 Intake Total 3750 Output Total 925 150 Balance 2825 -150 PT 14.1 SEC (12.0-15.0) 02/01/17 21:25 INR 1.10 (0.83-1.16) 02/01/17 21:25 Physical Exam - Physical Exam General Appearance: alert, mild distress Neck: non-tender, full range of motion, supple, normal inspection Respiratory: chest non-tender, lungs clear, normal breath sounds Cardiac/Chest: regular rate, rhythm, edema (2+ presacral) Abdomen: normal bowel sounds, non-tender, soft Male Genitalia: deferred Rectal: deferred Back: Normal inspection Skin: normal color, warm/dry Neuro/Psych: alert, oriented x 3 Time Spent w/Patient (minutes): 15
[2017-02-04] MEDS: ENOXAPARIN 40 MG/0.4 ML SYR SC SCH (09:22)
[2017-02-04] MEDS ORDERED: HYDROmorphONE/DILAUDID 4 MG TAB PO PRN (09:22)
[2017-02-04] MEDS ORDERED: MAGNESIUM CITRATE 300 ML BOTTLE PO ONE (09:24)
[2017-02-04] MEDS: IBUPROFEN 200 MG TAB PO SCH ×4 (10:55→22:21)
[2017-02-04] MEDS: BACITRACIN ZINC 14.2 GM OINTTUBE TP SCH ×2 (10:56→22:32)
[2017-02-04] MEDS: FINASTERIDE 5 MG TAB PO SCH (13:13)
[2017-02-04] MEDS ORDERED: BISACODYL 10 MG SUPP PR PRN (15:20)
[2017-02-04] MEDS ORDERED: POLYETHYLENE GLYCOL 3350 17 GM PKT PO PRN (15:20)
[2017-02-04] MEDS ORDERED: MAGNESIUM HYDROXIDE 30 ML UDCUP PO PRN (15:20)
[2017-02-04] MEDS ORDERED: LACTULOSE 20 GM/30 ML UDCUP PO PRN (15:20)
--- NOTE | 2017-02-04 15:24 | PDGENHP ---
History and Physical - Chief Complaint Acute shoulder pain - History of Present Illness Consultation history and physical reason for consultation: Medical comanagement Primary service: Trauma surgery HPI:66-year-old male presenting with acute pain characterized as severe, located in his right shoulder, with associated pain located in his right anterior chest, with onset of symptoms on the day of presentation secondary to mechanical fall. Patient also reports that he has had 3 weeks of pain of intermittent duration located in his left flank, exacerbated by palpation. He reports that he has not had any workup for this pain. He denies any dysuria. Does endorse some constipation since surgery 2 days ago. Reports that the pain in his right shoulder and anterior ribs somewhat alleviated by the oral pain medications he is currently receiving. Does report that he intermittently experiences left shoulder pain but at the present time he does not have any. History Information - Allergies/Home Medication List Allergies/Adverse Reactions: No Known Allergies Allergy (Unverified 02/01/17 14:07) Home Medications: Bupropion HCl [Wellbutrin Xl] 300 mg PO DAILY@02/01/17 [Last Taken 02/01/17] Diclofenac Sodium [Voltaren-XR] 100 mg PO DAILY@02/01/17 [Last Taken 01/31/17 ] Donepezil HCl 10 mg PO DAILY@02/01/17 [Last Taken 01/31/17] Finasteride [Finasteride] 5 mg PO DAILY@02/01/17 [Last Taken 01/30/17] Fludrocortisone Acetate [Florinef 0.1 MG (RX)] 0.1 mg PO DAILY@02/01/17 [ Last Taken 01/31/17] Hydrocodone/Acetaminophen [Wesco 5/325 (*)] 1 tab PO Q4H PRN 02/01/17 [Last Taken Unknown] Midodrine HCl 10 mg PO BID@,02/01/17 [Last Taken 02/01/17 11:00] PARoxetine HCL [Paroxetine HCl] 80 mg PO DAILY@02/01/17 [Last Taken 01/31/17] clonazePAM [Klonopin (*)] 0.5 mg PO DAILY@02/01/17 [Last Taken 01/31/17] Carbidopa/Levodopa [Carbidopa-Levodopa 25-250 Tab] 1 each PO ,,,16 [Last Taken 02/01/17 16:00] I have personally reviewed and updated: family history, medical history, social history, surgical history - Past Medical History Additional medical history: Parkinson's. Dimension. BPH. Hypertension with orthostasis, currently on fludrocortisone - Surgical History Additional surgical history: Anterior lower spinal fusion, right knee surgery - Family History Additional family history: father with kidney stones - Social History Smoking Status: Never smoked Alcohol Use: Rarely Drug Use: None Additional social history: Here on vacation from [place] with his Review of Systems ROS: 10pt was reviewed & negative except for what was stated in HPI & below Muscolosketal: Reports: joint pain ( right shoulder, left shoulder) Physical Exam Temp Pulse Resp BP Pulse Ox 36.8 C 73 15 135/75 H 92 02/04/17 11:38 02/04/17 11:38 02/04/17 11:38 02/04/17 14:05 02/04/17 11:38 O2 (L/minute) 2 Constitutional: no apparent distress, appears nourished, not in pain Eyes: PERRL, anicteric sclera, EOMI Ears, Nose, Mouth, Throat: moist mucous membranes, hearing normal, ears appear normal, no oral mucosal ulcers Cardiovascular: regular rate and rhythym, no murmur, rub, or gallop, No edema Respiratory: inspiratory crackles ( bilateral bases), No reduced air movement, No expiratory wheeze, No bronchial breath sounds Gastrointestinal: normoactive bowel sounds, soft, non-tender abdomen, no palpable masses Genitourinary: no bladder fullness, no bladder tenderness, other ( left CVA tenderness) Skin: other ( scattered abrasions right anterior chest some abrasions on his left wrist without any surrounding erythema) Musculoskeletal: other ( no tenderness to palpation over the left anterior or superior shoulder, he does have some crepitus with flexion of the left shoulder but no pain induced full range of motion left elbow and left wrist, full range of motion right wrist) Neurologic: AAOx3, sensation intact bilaterally, No facial droop Psychiatric: interacting appropriately, not anxious, thought process linear, other ( concentration 2/7), No agitated Lab Data & Imaging Review 02/01/17 15:19 02/01/17 15:19 WBC 9.36 10^3/uL (3.80-9.50) 02/01/17 15:19 RBC 4.24 10^6/uL (4.40-6.38) L 02/01/17 15:19 Hgb 13.6 g/dL (13.7-17.5) L 02/01/17 15:19 POC Hgb 14.6 gm/dL (13.7-17.5) 02/01/17 15:15 Hct 40.0 % (40.0-51.0) 02/01/17 15:19 POC Hct 43 % (40-51) 02/01/17 15:15 MCV 94.3 fL (81.5-99.8) 02/01/17 15:19 MCH 32.1 pg (27.9-34.1) 02/01/17 15:19 MCHC 34.0 g/dL (32.4-36.7) 02/01/17 15:19 RDW 13.8 % (11.5-15.2) 02/01/17 15:19 Plt Count 257 10^3/uL (150-400) 02/01/17 15:19 MPV 9.8 fL (8.7-11.7) 02/01/17 15:19 Neut % (Auto) 83.8 % (39.3-74.2) H 02/01/17 15:19 Lymph % (Auto) 6.4 % (15.0-45.0) L 02/01/17 15:19 Price % (Auto) 7.9 % (4.5-13.0) 02/01/17 15:19 Eos % (Auto) 0.5 % (0.6-7.6) L 02/01/17 15:19 Baso % (Auto) 0.4 % (0.3-1.7) 02/01/17 15:19 Nucleat RBC Rel Count 0.0 % (0.0-0.2) 02/01/17 15:19 Absolute Neuts (auto) 7.84 10^3/uL (1.70-6.50) H 02/01/17 15:19 Absolute Lymphs (auto) 0.60 10^3/uL (1.00-3.00) L 02/01/17 15:19 Absolute Monos (auto) 0.74 10^3/uL (0.30-0.80) 02/01/17 15:19 Absolute Eos (auto) 0.05 10^3/uL (0.03-0.40) 02/01/17 15:19 Absolute Basos (auto) 0.04 10^3/uL (0.02-0.10) 02/01/17 15:19 Absolute Nucleated RBC 0.00 10^3/uL (0-0.01) 02/01/17 15:19 Immature Gran % 1.0 % (0.0-1.1) 02/01/17 15:19 Immature Gran # 0.09 10^3/uL (0.00-0.10) 02/01/17 15:19 PT 14.1 SEC (12.0-15.0) 02/01/17 21:25 INR 1.10 (0.83-1.16) 02/01/17 21:25 APTT 25.4 SEC (23.0-38.0) 02/01/17 21:25 POC Sodium 143 mEq/L (134-144) 02/01/17 15:15 Sodium 142 mEq/L (134-144) 02/01/17 15:19 POC Potassium 3.6 mEq/L (3.3-5.0) 02/01/17 15:15 Potassium 3.9 mEq/L (3.5-5.2) 02/01/17 15:19 POC Chloride 103 mEq/L (97-110) 02/01/17 15:15 Chloride 109 mEq/L (97-110) 02/01/17 15:19 Carbon Dioxide 21 mEq/l (22-31) L 02/01/17 15:19 Anion Gap 12 mEq/L (8-16) 02/01/17 15:19 POC BUN 20 mg/dL (7-23) 02/01/17 15:15 BUN 22 mg/dL (7-23) 02/01/17 15:19 Creatinine 0.8 mg/dL (0.7-1.3) 02/01/17 15:19 POC Creatinine 0.9 mg/dL (0.7-1.3) 02/01/17 15:15 Estimated GFR > 60 02/01/17 15:19 Glucose 104 mg/dL (70-100) H 02/01/17 15:19 POC Glucose 104 mg/dL (70-100) H 02/04/17 04:04 Calcium 9.1 mg/dL (8.5-10.4) 02/01/17 15:19 Visualized and Interpreted imaging results: Yes Interpretation: clavicular x-ray demonstrating a distal right clavicle fracture Assessment & Plan Assessment: 66-year-old male presenting with acute fall and resultant traumatic clavicular fracture, rib fracture, being assessed for medical comanagement Plan: 1. Clavicular fracture. Acute, resulting in significant pain, pain management per primary trauma service 2. Constipation. Patient has not had a bowel movement in 2 days, ordered a bowel regiment, he is currently drinking magnesium citrate, reassess daily and escalate bowel regimen if needed 3. Atelectasis. Suspected, basilar crackles on physical exam, demonstrated proper incentive spirometer technique with patient, continue to educate and reassess 4. CVA tenderness. Acute, new problem this provider, further workup indicated. Patient reports ongoing symptoms for the past 3 weeks, abdominal CT was performed with IV contrast did not demonstrate any stones but this does not preclude the presence of stones - send urinalysis to evaluate for microscopic hematuria - repeat CBC and chemistry to ensure no renal dysfunction, no evidence of leukocytosis - I suspect the patient does not have a urinary tract infection given the absence of dysuria but certainly a kidney stones could be producing the aforementioned symptoms and do warrant further assessment 5. Dementia/chronic encephalopathy. No evidence of acute encephalopathy during this hospitalization, the patient has some impairment concentration but he is otherwise fully oriented, recommend good sleep-wake cycle and I have open the drapes in the patient's room, turned on the lights, and would recommend at bedtime melatonin for sleep aid is required 6. Elevated blood pressure. The patient reports a history of hypertension as well as orthostasis, and this is not uncommon in the setting of Parkinson's disease with autonomic dysregulation - the patient is on fludrocortisone at home, recommend continuing with systolic blood pressures in the 90-130 range today - patient has received IV hydralazine p.r.n. during this hospitalization, the patient is 2 days from surgery and is low risk for bleeding, would not recommend p.r.n. dosing of antihypertensives unless the patient is experiencing hypertensive symptoms I have discussed patient's consultation with Gabby Hannon, hospitalist provider, she has signed this patient out to me for medical comanagement consultation. The Hospital Medicine service will continue to consult in this patient's daily care, thank you for this consultation.
[2017-02-04] MEDS: FLUDROCORTISONE ACETATE 0.1 MG TAB PO SCH (15:53)
[2017-02-04] MEDS: DICLOFENAC SODIUM 100 MG PO SCH (15:58)
[2017-02-04 18:20] LABS: COLOR YELLOW; LEUKOCYTE ESTERASE,URINE NEGATIVE (NEGATIVE); NITRITE,URINE NEGATIVE (NEGATIVE)
[2017-02-04] MEDS: PARoxetine HCL 20 MG TAB PO SCH (22:21)
[2017-02-04] MEDS: SENNOSIDES/DOCUSATE SODIUM TAB PO SCH (22:21)
[2017-02-04] MEDS: DONEPEZIL HCL 5 MG TAB PO SCH (22:23)
[2017-02-04] MEDS: clonazePAM 0.5 MG TAB PO SCH (22:23)
[2017-02-05] MEDS: IBUPROFEN 200 MG TAB PO SCH ×5 (01:37→17:12)
[2017-02-05 05:26] LABS: HEMOGLOBIN 12.5 g/dL (13.7-17.5); MEAN CELL HEMOGLOBIN 31.5 pg (27.9-34.1); MEAN CELL HEMOGLOBIN CONCENTR. 32.9 g/dL (32.4-36.7); MEAN CELL VOLUME 95.7 fL (81.5-99.8); RED BLOOD CELL COUNT 3.97 10^6/uL (4.40-6.38); RED CELL DISTRIBUTION WIDTH 13.8 % (11.5-15.2)
[2017-02-05 05:34] LABS: ALANINE AMINOTRANSFERASE 63 IU/L (21-72); ALBUMIN 3.3 g/dL (3.5-5.0); ALKALINE PHOSPHATASE 105 IU/L (38-126); ANION GAP 10 mEq/L (8-16); ASPARTATE AMINOTRANSFERASE 65 IU/L (17-59); BILIRUBIN,TOTAL 0.9 mg/dL (0.1-1.4); CALCIUM 9.1 mg/dL (8.5-10.4); CARBON DIOXIDE 26 mEq/l (22-31); CHLORIDE 109 mEq/L (97-110); CREATININE 0.8 mg/dL (0.7-1.3); GLOMERULAR FILTRATION RATE > 60; GLUCOSE 85 mg/dL (70-100); SODIUM 145 mEq/L (134-144); TOTAL PROTEIN 5.8 g/dL (6.3-8.2)
[2017-02-05] MEDS: ACETAMINOPHEN 500 MG TAB PO SCH ×2 (06:16→14:39)
[2017-02-05] MEDS: buPROPion XL 150 MG TAB PO SCH (06:16)
[2017-02-05] MEDS: CARBIDOPA/LEVODOPA 25 MG/250 MG TAB PO SCH ×4 (06:16→17:12)
[2017-02-05] MEDS ORDERED: hydrALAZINE 20 MG/ML VIAL IVP ONE ×2 (06:45)
[2017-02-05] MEDS: ENOXAPARIN 40 MG/0.4 ML SYR SC SCH (08:15)
[2017-02-05] MEDS: SENNOSIDES/DOCUSATE SODIUM TAB PO SCH (08:20)
[2017-02-05] MEDS: BACITRACIN ZINC 14.2 GM OINTTUBE TP SCH (08:26)
--- NOTE | 2017-02-05 09:17 | SOAPPROG ---
SOAP Progress Note Assessment/Plan: Assessment/Plan: s/o ORIF R clavicle fracture s/p fall POD#2 - NWB RUE - Ice for comfort - Continue pain management - Lovenox for VTE chemoprophylaxis, needs to be continued for 2 weeks post- operatively - SCDs/TEDs for mechanical prophylaxis - Continue PT/OT - Okay for discharge from an orthopedic standpoint once cleared by the medicine and trauma teams 02/02/17 10:34 02/03/17 11:13 02/05/17 09:15 Subjective: Pt states he is still having some pain in the RUE, but is ready to go home. Pt denies fever, chills, chest pain, SOB, abdominal pain, N/V/D, numbness, tingling and calf pain. Objective: Vital Signs Temp Pulse Resp BP Pulse Ox 36.6 C 71 18 155/95 H 93 02/05/17 08:00 02/05/17 08:00 02/05/17 08:00 02/05/17 08:00 02/05/17 08:00 Laboratory Results 02/05/17 04:41 02/05/17 04:41 02/04/17 02/05/17 02/06/17 05:59 05:59 05:59 Intake Total 650 Output Total 150 Balance -150 650 PT 14.1 SEC (12.0-15.0) 02/01/17 21:25 INR 1.10 (0.83-1.16) 02/01/17 21:25 Physical Exam - Physical Exam General Appearance: alert, no apparent distress Respiratory: No respiratory distress Cardiac/Chest: normal peripheral pulses Skin: normal color, warm/dry Extremities: normal inspection, normal capillary refill, other (Dressing intact RUE without any drainage. Incision site c/d/i), No pedal edema, No calf tenderness, No swelling, No Dario's sign Neuro/Psych: no motor/sensory deficits, alert, normal mood/affect ICD10 Worksheet Patient Problems: Problems Problem Status Onset Head injury Acute History of Parkinson's disease Acute Laceration of right elbow Acute Right clavicle fracture Acute
[2017-02-05 12:02] VITALS: RESP 16
[2017-02-05] MEDS: FINASTERIDE 5 MG TAB PO SCH (13:13)
--- NOTE | 2017-02-05 15:14 | HOSPPROG ---
Hospitalist Progress Note Assessment/Plan: 66-year-old male presenting with acute fall and resultant traumatic clavicular fracture, rib fracture, being assessed for medical comanagement. This is my first encounter, chart reviewed. D/W Dr Peace. Plan: 1. Clavicular fracture. Acute, resulting in significant pain, pain management per primary trauma service 2. Constipation. Patient has had 2 BM, bowel regiment 3. Atelectasis. Suspected, basilar crackles on physical exam, continue incentive spirometer, continue to educate and reassess 4. CVA tenderness. Acute ongoing symptoms for the past 3 weeks, abdominal CT was performed with IV contrast did not demonstrate any stones but this does not preclude the presence of stones urinalysis stable repeat CBC and chemistry stable 5. Dementia/chronic encephalopathy. No evidence of acute encephalopathy during this hospitalization, the patient has some impairment concentration but he is otherwise fully oriented, recommend good sleep-wake cycle 6. Elevated blood pressure. The patient reports a history of hypertension as well as orthostasis, and this is not uncommon in the setting of Parkinson's disease with autonomic dysregulation - the patient is on fludrocortisone at home, recommend continuing with systolic blood pressures in the 90-130 range - patient has received IV hydralazine p.r.n. during this hospitalization, the patient is 2 days from surgery and is low risk for bleeding, would not recommend p.r.n. dosing of antihypertensives unless the patient is experiencing hypertensive symptoms 7. Dispo ok to DC from medical perspective. Reviewed with . Subjective: Feeling ok. No pain currently. Objective: Vital Signs Temp Pulse Resp BP Pulse Ox 37.0 C 66 16 147/82 H 91 L 02/05/17 12:00 02/05/17 12:00 02/05/17 12:00 02/05/17 12:00 02/05/17 12:00 Laboratory Results 02/05/17 04:41 02/05/17 04:41 02/04/17 02/05/17 02/06/17 05:59 05:59 05:59 Intake Total 650 Output Total 150 Balance -150 650 PT 14.1 SEC (12.0-15.0) 02/01/17 21:25 INR 1.10 (0.83-1.16) 02/01/17 21:25 - Physical Exam Constitutional: appears nourished, not in pain, chronically ill appearing Eyes: PERRL, anicteric sclera, EOMI Ears, Nose, Mouth, Throat: moist mucous membranes, hearing normal, ears appear normal Cardiovascular: regular rate and rhythym, No JVD, No edema Respiratory: no respiratory distress, no rales or rhonchi, reduced air movement Gastrointestinal: normoactive bowel sounds, No tenderness, No ascites Skin: warm, normal color, No erythema Musculoskeletal: pain with ROM, muscular tenderness, generalized weakness Psychiatric: not anxious, poor insight, poor judgement, poor memory, No thought process linear ICD10 Worksheet Patient Problems: Problems Problem Status Onset History of Parkinson's disease Acute Head injury Acute Right clavicle fracture Acute Laceration of right elbow Acute
[2017-02-05 17:00] VITALS: BP 150/95; PULSE 70; TEMP 98.3; O2SAT 96
--- NOTE | 2017-02-05 17:04 | TRAUMAPN ---
Assessment/Plan: 02/04/2017 PAD#3 POD#2 Assessment: HTN at base line is probably augmented by fluid administration and pain. Pain control still a problem. Has not moved his bowels yet Plan: Address pain and stop IV fluids. Will use hydralazine temporally. will add bowel protocol 02/05/2017 PAD#4 POD#3 Hospitalist service input appreciated. Dr. Guerin's note appreciated Assessment: Per Hospitalist service, will not address HTN unless there is a problem. Pain control better Has had two bowel movements Plan: Transfer to [facility] for rehab Subjective: I feel better! Objective: Vital Signs Temp Pulse Resp BP Pulse Ox 36.8 C 70 16 150/95 H 96 02/05/17 16:00 02/05/17 16:00 02/05/17 16:00 02/05/17 16:00 02/05/17 16:00 Laboratory Results 02/05/17 04:41 02/05/17 04:41 02/04/17 02/05/17 02/06/17 05:59 05:59 05:59 Intake Total 650 Output Total 150 Balance -150 650 PT 14.1 SEC (12.0-15.0) 02/01/17 21:25 INR 1.10 (0.83-1.16) 02/01/17 21:25 Physical Exam - Physical Exam General Appearance: WD/WN, alert, mild distress EENT: normal ENT inspection Neck: non-tender, full range of motion, supple Respiratory: chest non-tender, normal breath sounds Cardiac/Chest: regular rate, rhythm Abdomen: normal bowel sounds, non-tender, soft Male Genitalia: deferred Rectal: deferred Back: Normal inspection Skin: normal color (incisions well approximated), warm/dry Extremities: normal range of motion, normal inspection Neuro/Psych: alert, normal mood/affect, oriented x 3 Time Spent w/Patient (minutes): 15
[2017-02-05] MEDS: DICLOFENAC SODIUM 100 MG PO SCH (17:12)
[2017-02-05] MEDS: FLUDROCORTISONE ACETATE 0.1 MG TAB PO SCH (17:13)
--- NOTE | 2017-02-05 17:38 | PDIAF ---
- Diagnosis Code Status: Full Code - Medication Management Discharge Medications: Medications to Continue on Transfer Bupropion HCl [Wellbutrin Xl] 300 mg PO DAILY@02/01/17 [Last Taken 02/01/17] Diclofenac Sodium [Voltaren-XR] 100 mg PO DAILY@02/01/17 [Last Taken 01/31/17 ] Donepezil HCl 10 mg PO DAILY@02/01/17 [Last Taken 01/31/17] Finasteride 5 mg PO DAILY@02/01/17 [Last Taken 01/30/17] Fludrocortisone Acetate [Florinef] 0.1 mg PO DAILY@02/01/17 [Last Taken 01/31] PARoxetine HCL [Paroxetine HCl] 80 mg PO DAILY@02/01/17 [Last Taken 01/31/17] clonazePAM [Klonopin (*)] 0.5 mg PO DAILY@02/01/17 [Last Taken 01/31/17] Carbidopa/Levodopa [Carbidopa-Levodopa 25-250 Tab] 1 each PO ,,, [Last Taken 02/01/17 16:00] Acetaminophen [Tylenol ES 500 mg (*)] 1,000 mg PO Q8 #60 tab 02/05/17 [Last Taken Unknown] Bacitracin Zinc [Bacitracin Ointment Tube] 1 barbara TP BID #3 oint 02/05/17 [Last Taken Unknown] Enoxaparin [Lovenox 40 MG (*)] 40 mg SC DAILY #14 syr 02/05/17 [Last Taken Unknown] HYDROmorphone HCL [Dilaudid 4 mg (*)] 2 - 4 mg PO Q4HRS PRN #60 tab 02/05/17 [ Last Taken Unknown] Midodrine HCl 10 mg PO BID@ #30 02/05/17 [Last Taken 02/01/17 11:00] Polyethylene Glycol 3350 [Miralax 17 gm (*)] 17 gm PO DAILY PRN #30 pkt [Last Taken Unknown] Discharge Medications: Refer to the Discharge Home Medication list for PRN reason. - Orders Services needed: Registered Nurse, Physical Therapy, Occupational Therapy Diet Recommendation: no restrictions on diet Diet Texture: Regular Texture Diet, Meds Whole w/Liquids Wound Care Instructions: clean left elbow with soap and water twice daily the apply bacitracin and a dry dressing Date to Remove Sutures/Sorrento: 02/15/17 - Follow Up Care Current Providers and Referrals: UNK,UNKNOWN [Other] - As per Instructions Doug Neves MD [Medical Doctor] - (as needed.)
--- NOTE | 2017-02-06 04:38 | GDS ---
[f rep st] DISCHARGE SUMMARY DIAGNOSIS: Fall down hill with small subarachnoid hemorrhoid, laceration/ abrasion of the right elbow, right distal clavicle fracture, right 5th and 6th rib fractures. He has undergone an ORIF of his right distal clavicle. Some lacerations on his scalp have been sutured. DISPOSITION: To [facility] facility. CONDITION: Good. There is no restriction on his diet and regular texture. MEDICATIONS AT DISCHARGE: Include Tylenol 1000 mg every 8 hours, bacitracin ointment apply b.i.d. to abrasions and lacerations. He will continue Lovenox 40 mg subcu daily for 2 weeks. Use Dilaudid 2-4 mg every 4 hours as needed. He will use MiraLAX 17 g daily. He takes Florinef 0.1 mg daily, Klonopin 0.5 mg daily, donepezil hydrochloride 10 mg daily, paroxetine hydrochloride 80 mg daily, Voltaren XR 100 mg daily, finasteride 5 mg daily, Wellbutrin 300 mg daily. He will continue on carbidopa-levodopa 25/25 p.o. He will take midodrine hydrochloride 10 mg twice a day. ACTIVITY AND RESTRICTIONS: Nonweightbearing right upper extremities. Wear sling for comfort. He is to take Lovenox next 14 days to keep his sutures clean and dry and cover for showers. He follow up with orthopedic provider in [place] (or [place]) in 10-14 days postoperatively. He is to use bacitracin and dry dressing 2 times a day for the right elbow. [facility] H[facility]PITAL COURSE: He has slowly gotten his pain under control. He was initially hypertensive. This was felt partially due to fluid resuscitation and an autonomic dysregulation due to his parkinsonism by the hospitalist bridal sales consultant. It was felt by the hospitalist bridal sales consultant it was not necessary to treat that at this point. He is much more comfortable now at discharge. All incisions are clean. There is more of an abrasion than a laceration to his right elbow. That is cleaning up nicely as well. /[id number]/MODL MTDD
== END 2017-02-05 19:15 | DRG 516 ==
LOC: OBSVTOIN 16:56 → F3N 17:48
PROVIDERS: ADMIT Surgery; ATTEND Surgery
PROC: 0HQDXZZ Repair Right Lower Arm Skin, External Approach (ICD-10-PCS; 2017-02-01)
PROC: 0HQ1XZZ Repair Face Skin, External Approach (ICD-10-PCS; 2017-02-01)
PROC: 0PS904Z Reposition Right Clavicle with Internal Fixation Device, Open Approach (ICD-10-PCS; principal; 2017-02-02 08:00)
DX: S42.001A Fracture of unspecified part of right clavicle, initial encounter for closed fracture (principal); S22.41XA Multiple fractures of ribs, right side, initial encounter for closed fracture; S51.011A Laceration without foreign body of right elbow, initial encounter; S01.111A Laceration without foreign body of right eyelid and periocular area, initial encounter; W01.0XXA Fall on same level from slipping, tripping and stumbling without subsequent striking against object, initial encounter; Y93.01 Activity, walking, marching and hiking; Y92.828 Other wilderness area as the place of occurrence of the external cause; G20 Parkinson's disease; K59.00 Constipation, unspecified
CPT/HCPCS: 82947-QW; 92523-GN; 92526-GN; 92610-GN; 96374; 97110-GO; 97110-GP; 97116-GP; 97162-GP; 97166-GO; 97530-GO; 97530-GP; 97535-GO; C1713; C1769; G8978-GP-CK; G8979-GP-CJ; G8987-GO-CL; G8988-GO-CJ; G8996-GN-CH; G8997-GN-CH; G9165-GN-CL; G9166-GN-CJ; G9167-GN-CL; J0360; J0690; J1100; J1170; J1650; J2250; J2370; J2405; J2704; J3010; Q9967